=== PATIENT | male | born 1995 | race Caucasian/White ===

== ENCOUNTER 2017-11-04 12:54 | Emergency (ER) | payer MEDICAID ==
[~2017-11-04] VITALS: Ht 185.4 cm; Wt 93.0 kg
[2017-11-04] MEDS ORDERED: BENA20TA3 MT ×2 (13:08→13:10)
[2017-11-04] MEDS ORDERED: ATOR10TA69 MT (13:08)
[2017-11-04] MEDS ORDERED: ACETAMINOPHEN 325MG TABLET PO ONE (14:30)
[2017-11-04 14:39] LABS: BASOPHILS % 0.2 % (0.0-2.0); EOSINOPHILS % 0.5 % (0.0-5.0); HEMATOCRIT. 37.3 % (42.0-52.0); HEMOGLOBIN. 12.5 g/dL (14.0-18.0); LYMPHOCYTES % 21.5 % (20.0-50.0); MEAN CORPUSCULAR HEMOGLOBIN 27.6 pg (28.0-32.0); MEAN CORPUSCULAR VOLUME 82.1 fL (80.0-94.0); MEAN PLATELET VOLUME 8.2 fl (7.4-10.4); MONOCYTES % 5.8 % (2.0-8.0); PLATELET 207 x1000/uL (130-400); RED BLOOD CELL COUNT 4.54 mill/uL (4.7-6.1); RED CELL DISTRIBUTION WIDTH 13.8 % (11.6-14.6)
[2017-11-04 14:42] LABS: CHLORIDE 103 mEq/L (98-107)
[2017-11-04 14:44] LABS: INR 1.1; PROTHROMBIN TIME 11.2 sec (9.4-11.6)
[2017-11-04 18:30] VITALS: BP 124/86
== END 2017-11-04 18:50 | disposition home or self-care (01) ==
LOC: ER 13:16
DX: E11.65 Type 2 diabetes mellitus with hyperglycemia (principal); M94.0 Chondrocostal junction syndrome [Tietze]; N17.0 Acute kidney failure with tubular necrosis; E11.21 Type 2 diabetes mellitus with diabetic nephropathy; E86.0 Dehydration; D50.9 Iron deficiency anemia, unspecified; I10 Essential (primary) hypertension; E78.00 Pure hypercholesterolemia, unspecified; K21.9 Gastro-esophageal reflux disease without esophagitis
CPT/HCPCS: 36415; 71045; 80053; 83036; 83880; 84484; 85025; 85610; 93005; 99285